=== PATIENT | male | born 1965 | race Caucasian/White ===

== ENCOUNTER 2017-08-07 01:53 | Emergency (ER) | payer MEDICAID, SELFPAY ==
[~2017-08-07] VITALS: Ht 170.2 cm; Wt 84.1 kg
[2017-08-07 01:56] VITALS: BP 146/95
[2017-08-07] MEDS ORDERED: AMIT25TA9 PO (02:01)
[2017-08-07] MEDS ORDERED: IBUP-2071 PO (02:01)
[2017-08-07] MEDS ORDERED: LISI-661 PO (02:01)
[2017-08-07 02:29] LABS: BASOPHILS # (AUTO) 0.09 K/uL (0.00-0.20); BASOPHILS % (AUTO) 1.1 % (0.0-2.0); EOSINOPHILS # (AUTO) 0.05 K/uL (0.00-0.70); EOSINOPHILS % (AUTO) 0.57 % (1.0-6.0); HEMATOCRIT 42.3 % (41-53); HEMOGLOBIN 14.3 g/dL (13.5-17.5); LYMPHOCYTES # (AUTO) 2.4 K/uL (1.0-4.8); LYMPHOCYTES % (AUTO) 28.1 % (22.0-44.0); MEAN CORPUSCULAR HEMOGLOBIN 30.6 pg (26.0-34.0); MEAN CORPUSCULAR HGB CONC 33.7 G/dL (31.0-37.0); MEAN CORPUSCULAR VOLUME 91 fL (80-100); MONOCYTES # (AUTO) 0.6 K/uL (0.1-1.0); MONOCYTES % (AUTO) 7.1 % (2.0-9.0); NEUTROPHILS # (AUTO) 5.4 K/uL (1.8-7.7); NEUTROPHILS % (AUTO) 63.2 % (40.0-70.0); PLATELET COUNT (AUTO) 258 K/uL (150-450); RED BLOOD CELL COUNT(AUTO) 4.66 MIL/uL (4.50-5.90); RED CELL DISTRIBUTION WIDTH 14.2 % (11.5-14.5)
[2017-08-07 02:40] LABS: ANION GAP 4 mmol/L (8-16); CARBON DIOXIDE 31 mmol/L (22-29); CHLORIDE 99 mmol/L (98-107); CREATININE 1.42 mg/dL (0.60-1.30); GLOMERULAR FILTR. RATE CALC 53 mL/min (>60); GLUCOSE,RANDOM 94 mg/dL (70-110); POTASSIUM 4.2 mmol/L (3.5-5.1); SODIUM SERUM 134 mmol/L (136-145); UREA NITROGEN, BLOOD 18 mg/dL (7-18)
[2017-08-07 02:46] LABS: ALANINE AMINOTRANSFERASE 26 U/L (12-78); ALBUMIN 3.8 g/dL (3.4-5.0); ALKALINE PHOSPHATASE 105 U/L (46-116); ASPARTATE AMINOTRANSFERASE 23 U/L (15-37); BILIRUBIN,TOTAL 0.6 mg/dL (0.1-1.0); TOTAL PROTEIN, SERUM 7.7 g/dL (6.4-8.2)
[2017-08-07] MEDS ORDERED: HALOPERIDOL 5 MG TABLET PO ONE (03:45)
== END 2017-08-07 05:06 | disposition home or self-care (01) ==
LOC: EMS 01:54
DX: R44.0 Auditory hallucinations (principal); R44.1 Visual hallucinations; R79.89 Other specified abnormal findings of blood chemistry; F41.9 Anxiety disorder, unspecified; F32.9 Major depressive disorder, single episode, unspecified; F20.9 Schizophrenia, unspecified; I10 Essential (primary) hypertension; F17.210 Nicotine dependence, cigarettes, uncomplicated; F11.90 Opioid use, unspecified, uncomplicated; F12.90 Cannabis use, unspecified, uncomplicated; F19.90 Other psychoactive substance use, unspecified, uncomplicated; F15.90 Other stimulant use, unspecified, uncomplicated; Z76.0 Encounter for issue of repeat prescription
CPT/HCPCS: 36415; 80053; 85025; 99284; G0480

== ENCOUNTER 2017-11-06 23:51 | Emergency (ER) | payer MEDICAID ==
[~2017-11-06] VITALS: Ht 172.7 cm; Wt 88.2 kg
[~2017-11-06 23:51] MED LIST: AMIT25TA9 PO; IBUP-2071 PO; LISI-661 PO
[2017-11-06 23:58] VITALS: BP 106/73
[2017-11-07] MEDS ORDERED: NAPR250T4 PO (00:03)
== END 2017-11-07 00:56 | disposition left against medical advice (07) ==
LOC: EMS 23:51
DX: R42 Dizziness and giddiness (principal); R51 Headache; R11.10 Vomiting, unspecified; I10 Essential (primary) hypertension; F17.210 Nicotine dependence, cigarettes, uncomplicated; F12.90 Cannabis use, unspecified, uncomplicated; F19.90 Other psychoactive substance use, unspecified, uncomplicated; F11.90 Opioid use, unspecified, uncomplicated; Z53.21 Procedure and treatment not carried out due to patient leaving prior to being seen by health care provider

== ENCOUNTER 2017-11-07 04:17 | Emergency (ER) | payer MEDICAID ==
[~2017-11-07] VITALS: Ht 172.7 cm; Wt 88.2 kg
[~2017-11-07 04:17] MED LIST changes: +NAPR250T4 PO
[2017-11-07 04:58] LABS: BASOPHILS % (AUTO) 0.3 % (0.0-2.0); EOSINOPHILS % (AUTO) 0.4 % (1.0-6.0); HEMATOCRIT 48.1 % (41-53); HEMOGLOBIN 16.4 g/dL (13.5-17.5); LYMPHOCYTES # (AUTO) 3.5 K/uL (1.0-4.8); LYMPHOCYTES % (AUTO) 38.4 % (22.0-44.0); MEAN CORPUSCULAR HEMOGLOBIN 30.8 pg (26.0-34.0); MEAN CORPUSCULAR HGB CONC 34.1 G/dL (31.0-37.0); MEAN CORPUSCULAR VOLUME 90 fL (80-100); MONOCYTES # (AUTO) 1.2 K/uL (0.1-1.0); NEUTROPHILS # (AUTO) 4.4 K/uL (1.8-7.7); NEUTROPHILS % (AUTO) 47.9 % (40.0-70.0); PLATELET COUNT (AUTO) 271 K/uL (150-450); RED BLOOD CELL COUNT(AUTO) 5.32 MIL/uL (4.50-5.90); RED CELL DISTRIBUTION WIDTH 14.1 % (11.5-14.5)
[2017-11-07 05:10] VITALS: BP 102/68
[2017-11-07 05:14] LABS: CALCIUM, TOTAL 9.6 mg/dL (8.8-10.5); CREATININE 3.04 mg/dL (0.60-1.30); POTASSIUM 4.9 mmol/L (3.5-5.1)
[2017-11-07 05:20] LABS: ALBUMIN 4.4 g/dL (3.4-5.0); BILIRUBIN,TOTAL 0.7 mg/dL (0.1-1.0); TOTAL PROTEIN, SERUM 8.3 g/dL (6.4-8.2)
== END 2017-11-07 05:42 | disposition left against medical advice (07) ==
LOC: EMS 04:17
DX: R42 Dizziness and giddiness (principal); N28.9 Disorder of kidney and ureter, unspecified; I10 Essential (primary) hypertension; F17.210 Nicotine dependence, cigarettes, uncomplicated; F11.90 Opioid use, unspecified, uncomplicated; F12.90 Cannabis use, unspecified, uncomplicated; F15.90 Other stimulant use, unspecified, uncomplicated
CPT/HCPCS: 99284

== ENCOUNTER 2018-04-16 15:54 | Emergency (ER) | payer MEDICAID ==
[~2018-04-16] VITALS: Ht 172.7 cm; Wt 86.0 kg
[2018-04-16 17:48] VITALS: BP 128/87
== END 2018-04-16 17:50 | disposition home or self-care (01) ==
LOC: EMS 15:55
DX: S00.83XA Contusion of other part of head, initial encounter (principal); M79.89 Other specified soft tissue disorders; F41.9 Anxiety disorder, unspecified; F32.9 Major depressive disorder, single episode, unspecified; I10 Essential (primary) hypertension; F20.9 Schizophrenia, unspecified; F17.210 Nicotine dependence, cigarettes, uncomplicated; F11.10 Opioid abuse, uncomplicated; F12.10 Cannabis abuse, uncomplicated; F14.90 Cocaine use, unspecified, uncomplicated; Z79.899 Other long term (current) drug therapy; Y04.0XXA Assault by unarmed brawl or fight, initial encounter; Y93.89 Activity, other specified; Y92.89 Other specified places as the place of occurrence of the external cause; Y99.8 Other external cause status
CPT/HCPCS: 99284

== ENCOUNTER 2019-04-15 12:26 | Emergency (ER) | payer MEDICAID, OTHER ==
[~2019-04-15] VITALS: Ht 175.3 cm; Wt 90.9 kg
[2019-04-15] MEDS ORDERED: HYDR25TA PO (12:34)
[2019-04-15] MEDS ORDERED: ACET-66 PO (12:34)
[2019-04-15] MEDS ORDERED: AMIT50TA3 PO (13:24)
[2019-04-15] MEDS ORDERED: LISI-662 PO (13:24)
[2019-04-15] MEDS ORDERED: AMOX TR/POT CLAV 875 MG/125 MG TABLET PO ONE (13:30)
[2019-04-15] MEDS ORDERED: ACETAMINOPHEN 500 MG TABLET PO ONE (13:45)
[2019-04-15 14:09] VITALS: BP 140/80
== END 2019-04-15 14:10 | disposition home or self-care (01) ==
LOC: EMS 12:29
DX: H66.92 Otitis media, unspecified, left ear (principal); I10 Essential (primary) hypertension; F32.9 Major depressive disorder, single episode, unspecified; F41.9 Anxiety disorder, unspecified; F17.210 Nicotine dependence, cigarettes, uncomplicated; Z79.899 Other long term (current) drug therapy

== ENCOUNTER 2019-06-09 16:07 | Emergency (ER) | payer OTHER ==
[~2019-06-09] VITALS: Ht 175.3 cm; Wt 87.3 kg
[~2019-06-09 16:07] MED LIST changes: +ACET-66 PO; -AMIT25TA9 PO; +AMIT50TA3 PO; +HYDR25TA PO; -IBUP-2071 PO; -LISI-661 PO; +LISI-662 PO; -NAPR250T4 PO
[2019-06-09] MEDS ORDERED: LIDOCAINE/PF 1% 5 ML VIAL INJ ONE (17:00)
[2019-06-09] MEDS ORDERED: BACITRACIN 0.9 GM PACKET OINTMENT TP ONE (17:00)
[2019-06-09 17:40] VITALS: BP 124/81
== END 2019-06-09 17:47 | disposition home or self-care (01) ==
LOC: EMS 16:07
DX: S61.411A Laceration without foreign body of right hand, initial encounter (principal); F17.210 Nicotine dependence, cigarettes, uncomplicated; F41.9 Anxiety disorder, unspecified; F32.9 Major depressive disorder, single episode, unspecified; F20.9 Schizophrenia, unspecified; I10 Essential (primary) hypertension; Z79.899 Other long term (current) drug therapy; W26.0XXA Contact with knife, initial encounter; Y93.89 Activity, other specified; Y92.89 Other specified places as the place of occurrence of the external cause; Y99.8 Other external cause status
CPT/HCPCS: 12002; 99283; 99406; J2001

== ENCOUNTER 2020-03-24 17:28 | Emergency (ER) | payer MEDICAID, OTHER ==
[~2020-03-24] VITALS: Ht 175.3 cm; Wt 100.0 kg
[~2020-03-24 17:28] MED LIST changes: +HYDR-1475 PO; -HYDR25TA PO
[2020-03-24] MEDS ORDERED: IBUPROFEN 800 MG TABLET PO ONE (18:00)
[2020-03-24 19:32] LABS: BASOPHILS % (AUTO) 0.6 % (0.0-2.0); EOSINOPHILS % (AUTO) 0.7 % (1.0-6.0); HEMATOCRIT 45.8 % (41-53); HEMOGLOBIN 15.2 g/dL (13.5-17.5); LYMPHOCYTES # (AUTO) 3.1 K/uL (1.0-4.8); LYMPHOCYTES % (AUTO) 31.5 % (22.0-44.0); MEAN CORPUSCULAR HEMOGLOBIN 30.3 pg (26.0-34.0); MEAN CORPUSCULAR HGB CONC 33.3 G/dL (31.0-37.0); MEAN CORPUSCULAR VOLUME 91 fL (80-100); MONOCYTES # (AUTO) 1.1 K/uL (0.1-1.0); MONOCYTES % (AUTO) 10.9 % (2.0-9.0); NEUTROPHILS # (AUTO) 5.6 K/uL (1.8-7.7); NEUTROPHILS % (AUTO) 56.3 % (40.0-70.0); PLATELET COUNT (AUTO) 270 K/uL (150-450); RED BLOOD CELL COUNT(AUTO) 5.02 MIL/uL (4.50-5.90); RED CELL DISTRIBUTION WIDTH 13.9 % (11.5-14.5)
[2020-03-24] MEDS ORDERED: KETOROLAC TROMETHAMINE 30 MG/ML VIAL IVP ONE (19:45)
[2020-03-24 20:00] LABS: CALCIUM, TOTAL 9.5 mg/dL (8.8-10.5); CREATININE 1.43 mg/dL (0.60-1.30); POTASSIUM 3.6 mmol/L (3.5-5.1)
[2020-03-24 20:25] LABS: ALBUMIN 4.2 g/dL (3.4-5.0); BILIRUBIN,TOTAL 1.1 mg/dL (0.1-1.0); TOTAL PROTEIN, SERUM 8.3 g/dL (6.4-8.2)
[2020-03-24 20:30] VITALS: BP 123/84
[2020-03-24 20:46] LABS: PROTHROMBIN TIME 10.5 SEC (9.4-11.6)
== END 2020-03-24 21:14 | disposition home or self-care (01) ==
LOC: EMS 17:28
DX: S22.20XA Unspecified fracture of sternum, initial encounter for closed fracture (principal); J20.9 Acute bronchitis, unspecified; I10 Essential (primary) hypertension; F32.9 Major depressive disorder, single episode, unspecified; F41.9 Anxiety disorder, unspecified; F12.90 Cannabis use, unspecified, uncomplicated; F17.210 Nicotine dependence, cigarettes, uncomplicated; Z79.899 Other long term (current) drug therapy; V49.40XA Driver injured in collision with unspecified motor vehicles in traffic accident, initial encounter; Y93.89 Activity, other specified; Y92.89 Other specified places as the place of occurrence of the external cause; Y99.8 Other external cause status
CPT/HCPCS: 36415; 71045; 71250; 80053; 82550; 83880; 84484; 85025; 85610; 85730; 93005; 96374; 99285; 99406; J1885

== ENCOUNTER 2020-04-16 22:26 | Emergency (ER) | payer MEDICAID ==
[~2020-04-16] VITALS: Ht 172.7 cm; Wt 90.9 kg
[2020-04-17] MEDS ORDERED: CLINDAMYCIN HCL 150 MG CAPSULE PO ONE
[2020-04-17 00:25] VITALS: BP 135/88
== END 2020-04-17 00:45 | disposition home or self-care (01) ==
LOC: EMS 22:26
DX: L03.011 Cellulitis of right finger (principal); F32.9 Major depressive disorder, single episode, unspecified; I10 Essential (primary) hypertension; F20.9 Schizophrenia, unspecified; F17.210 Nicotine dependence, cigarettes, uncomplicated
CPT/HCPCS: 71045-TC

== ENCOUNTER 2020-04-29 13:01 | Emergency (ER) | payer MEDICAID ==
[~2020-04-29] VITALS: Ht 167.6 cm; Wt 77.3 kg
[2020-04-29] MEDS ORDERED: OLAN5TAB2 PO (13:06)
[2020-04-29 14:15] VITALS: BP 114/65
== END 2020-04-29 14:22 | disposition home or self-care (01) ==
LOC: EMS 13:03
DX: R42 Dizziness and giddiness (principal); F20.9 Schizophrenia, unspecified; F41.9 Anxiety disorder, unspecified; F32.9 Major depressive disorder, single episode, unspecified; I10 Essential (primary) hypertension; F17.210 Nicotine dependence, cigarettes, uncomplicated; F12.90 Cannabis use, unspecified, uncomplicated; Z79.899 Other long term (current) drug therapy
CPT/HCPCS: 93005

== ENCOUNTER 2020-07-24 23:32 | Emergency (ER) | payer MEDICAID ==
[~2020-07-24] VITALS: Ht 172.7 cm; Wt 81.8 kg
[~2020-07-24 23:32] MED LIST changes: +ACET-3385 PO; -ACET-66 PO; +OLAN5TAB2 PO
[2020-07-24 23:36] VITALS: BP 158/100
== END 2020-07-25 02:13 | disposition left against medical advice (07) ==
LOC: EMS 23:35
DX: Z04.1 Encounter for examination and observation following transport accident (principal); Z53.21 Procedure and treatment not carried out due to patient leaving prior to being seen by health care provider

== ENCOUNTER 2020-08-11 03:19 | Emergency (ER) | payer MEDICAID ==
[~2020-08-11 03:19] MED LIST changes: -LISI-662 PO; +LISI-894 PO
== END 2020-08-11 03:50 | disposition left against medical advice (07) ==
LOC: EMS 03:19
DX: R44.0 Auditory hallucinations (principal); Z53.21 Procedure and treatment not carried out due to patient leaving prior to being seen by health care provider

== ENCOUNTER 2021-09-19 09:03 | Emergency (ER) | payer MEDICAID ==
[~2021-09-19] VITALS: Ht 172.7 cm; Wt 87.7 kg
[~2021-09-19 09:03] MED LIST changes: +AMIT-92 PO; -AMIT50TA3 PO; -HYDR-1475 PO; +HYDR25TA2 PO; -OLAN5TAB2 PO; +OLAN5TAB52 PO
[2021-09-19 09:27] VITALS: BP 125/83
[2021-09-19] MEDS ORDERED: IBUP-2070 PO ×2 (10:11→10:46)
[2021-09-19] MEDS ORDERED: DOXY-354 PO ×2 (10:11→10:46)
== END 2021-09-19 10:50 | disposition home or self-care (01) ==
LOC: EMS 09:03
DX: L02.413 Cutaneous abscess of right upper limb (principal); I10 Essential (primary) hypertension; F41.9 Anxiety disorder, unspecified; F32.9 Major depressive disorder, single episode, unspecified; F20.9 Schizophrenia, unspecified; F12.90 Cannabis use, unspecified, uncomplicated; F17.210 Nicotine dependence, cigarettes, uncomplicated; Z79.899 Other long term (current) drug therapy
CPT/HCPCS: 99283; Z7502

== ENCOUNTER 2021-11-27 23:42 | Emergency (ER) | payer MEDICAID ==
[~2021-11-27] VITALS: Ht 172.7 cm; Wt 86.4 kg
[~2021-11-27 23:42] MED LIST changes: +DOXY-354 PO; +IBUP-2070 PO
[2021-11-27 23:46] VITALS: BP 165/99
[2021-11-27] MEDS ORDERED: HYDR25TA2 PO (23:58)
== END 2021-11-27 23:55 | disposition left against medical advice (07) ==
LOC: EMS 23:46
DX: F32.9 Major depressive disorder, single episode, unspecified (principal); Z53.21 Procedure and treatment not carried out due to patient leaving prior to being seen by health care provider

== ENCOUNTER 2021-11-29 20:44 | Emergency (ER) | payer MEDICAID ==
[~2021-11-29] VITALS: Ht 172.7 cm; Wt 82.7 kg
[~2021-11-29 20:44] MED LIST changes: -ACET-3385 PO; -DOXY-354 PO; -OLAN5TAB52 PO
[2021-11-29 21:11] VITALS: BP 154/86
[2021-11-30] MEDS ORDERED: LORazepam 2 MG TABLET PO ONE
[2021-11-30] MEDS ORDERED: OLANZapine 5 MG TABLET PO ONE
== END 2021-11-30 03:00 | disposition home or self-care (01) ==
LOC: EMS 20:54
DX: F20.9 Schizophrenia, unspecified (principal); F32.A Depression, unspecified; F41.9 Anxiety disorder, unspecified; I10 Essential (primary) hypertension; F17.210 Nicotine dependence, cigarettes, uncomplicated; F12.90 Cannabis use, unspecified, uncomplicated; Z87.898 Personal history of other specified conditions; Z98.890 Other specified postprocedural states
CPT/HCPCS: 99284; Z7502; Z7610

== ENCOUNTER 2022-02-11 10:11 | Emergency (ER) | payer MEDICAID ==
[~2022-02-11] VITALS: Ht 170.2 cm; Wt 90.9 kg
[2022-02-11] MEDS ORDERED: QUET50TA PO (10:24)
[2022-02-11 10:44] VITALS: BP 132/88
[2022-02-11] MEDS ORDERED: CEPH-558 PO (11:12)
== END 2022-02-11 11:33 | disposition home or self-care (01) ==
LOC: EMS 10:13
DX: S69.91XA Unspecified injury of right wrist, hand and finger(s), initial encounter (principal); F20.9 Schizophrenia, unspecified; F31.9 Bipolar disorder, unspecified; F41.9 Anxiety disorder, unspecified; F10.20 Alcohol dependence, uncomplicated; F17.210 Nicotine dependence, cigarettes, uncomplicated; F12.90 Cannabis use, unspecified, uncomplicated; I10 Essential (primary) hypertension; W26.9XXA Contact with unspecified sharp object(s), initial encounter; Y93.89 Activity, other specified; Y92.89 Other specified places as the place of occurrence of the external cause; Y99.8 Other external cause status
CPT/HCPCS: 99283

== ENCOUNTER 2022-03-02 10:11 | Emergency (ER) | payer MEDICAID ==
[~2022-03-02] VITALS: Ht 172.7 cm; Wt 85.0 kg
[~2022-03-02 10:11] MED LIST changes: +CEPH-558 PO; -HYDR25TA2 PO; +QUET50TA PO
[2022-03-02] MEDS ORDERED: IBUPROFEN 600 MG TABLET PO ONE (11:45)
[2022-03-02 11:57] LABS: BASOPHILS % (AUTO) 0.6 % (0.0-2.0); EOSINOPHILS % (AUTO) 1.6 % (1.0-6.0); HEMATOCRIT 42.9 % (41-53); HEMOGLOBIN 14.6 g/dL (13.5-17.5); LYMPHOCYTES # (AUTO) 2.3 K/uL (1.0-4.8); LYMPHOCYTES % (AUTO) 30.3 % (22.0-44.0); MEAN CORPUSCULAR HEMOGLOBIN 30.9 pg (26.0-34.0); MEAN CORPUSCULAR HGB CONC 33.9 G/dL (31.0-37.0); MEAN CORPUSCULAR VOLUME 91 fL (80-100); MONOCYTES # (AUTO) 0.7 K/uL (0.1-1.0); NEUTROPHILS # (AUTO) 4.4 K/uL (1.8-7.7); NEUTROPHILS % (AUTO) 58.5 % (40.0-70.0); PLATELET COUNT (AUTO) 225 K/uL (150-450); RED BLOOD CELL COUNT(AUTO) 4.72 MIL/uL (4.50-5.90); RED CELL DISTRIBUTION WIDTH 13.3 % (11.5-14.5)
[2022-03-02 13:01] LABS: ANION GAP 8 mmol/L (8-16); CALCIUM, TOTAL 8.6 mg/dL (8.8-10.5); CARBON DIOXIDE 26 mmol/L (22-29); CHLORIDE 105 mmol/L (98-107); CREATININE 1.18 mg/dL (0.60-1.30); GLOMERULAR FILTR. RATE CALC > 60 mL/min (>60); GLUCOSE,RANDOM 91 mg/dL (70-110); SODIUM SERUM 139 mmol/L (136-145); UREA NITROGEN, BLOOD 24 mg/dL (7-18)
[2022-03-02] MEDS ORDERED: IBUP-2070 PO (13:28)
[2022-03-02 14:23] VITALS: BP 113/72
== END 2022-03-02 14:57 | disposition home or self-care (01) ==
LOC: EMS 10:11
DX: S62.636A Displaced fracture of distal phalanx of right little finger, initial encounter for closed fracture (principal); R55 Syncope and collapse; S09.90XA Unspecified injury of head, initial encounter; S16.1XXA Strain of muscle, fascia and tendon at neck level, initial encounter; F41.9 Anxiety disorder, unspecified; F32.A Depression, unspecified; I10 Essential (primary) hypertension; F20.9 Schizophrenia, unspecified; G47.00 Insomnia, unspecified; F17.210 Nicotine dependence, cigarettes, uncomplicated; F12.90 Cannabis use, unspecified, uncomplicated; Z98.890 Other specified postprocedural states; X58.XXXA Exposure to other specified factors, initial encounter; Y93.89 Activity, other specified; Y92.098 Other place in other non-institutional residence as the place of occurrence of the external cause; Y99.8 Other external cause status
CPT/HCPCS: 70450; 72125; 80048; 85025; 93005; 99285

== ENCOUNTER 2022-03-14 18:21 | Emergency (ER) | payer MEDICAID ==
[~2022-03-14] VITALS: Ht 172.7 cm; Wt 81.8 kg
[~2022-03-14 18:21] MED LIST changes: -CEPH-558 PO
[2022-03-14 20:02] LABS: BASOPHILS % (AUTO) 0.4 % (0.0-2.0); EOSINOPHILS % (AUTO) 0.1 % (1.0-6.0); HEMATOCRIT 43.4 % (41-53); HEMOGLOBIN 14.6 g/dL (13.5-17.5); LYMPHOCYTES # (AUTO) 1.5 K/uL (1.0-4.8); LYMPHOCYTES % (AUTO) 17.9 % (22.0-44.0); MEAN CORPUSCULAR HEMOGLOBIN 30.8 pg (26.0-34.0); MEAN CORPUSCULAR HGB CONC 33.6 G/dL (31.0-37.0); MEAN CORPUSCULAR VOLUME 92 fL (80-100); MONOCYTES # (AUTO) 0.6 K/uL (0.1-1.0); MONOCYTES % (AUTO) 6.7 % (2.0-9.0); NEUTROPHILS # (AUTO) 6.2 K/uL (1.8-7.7); NEUTROPHILS % (AUTO) 74.9 % (40.0-70.0); PLATELET COUNT (AUTO) 200 K/uL (150-450); RED BLOOD CELL COUNT(AUTO) 4.74 MIL/uL (4.50-5.90); RED CELL DISTRIBUTION WIDTH 13.7 % (11.5-14.5)
[2022-03-14 20:11] LABS: ANION GAP 15 mmol/L (8-16); CALCIUM, TOTAL 9.5 mg/dL (8.8-10.5); CARBON DIOXIDE 28 mmol/L (22-29); CHLORIDE 100 mmol/L (98-107); CREATININE 1.14 mg/dL (0.60-1.30); GLOMERULAR FILTR. RATE CALC > 60 mL/min (>60); GLUCOSE,RANDOM 102 mg/dL (70-110); SODIUM SERUM 143 mmol/L (136-145); UREA NITROGEN, BLOOD 21 mg/dL (7-18)
[2022-03-14 20:18] LABS: ALANINE AMINOTRANSFERASE 27 U/L (12-78); ALBUMIN 3.8 g/dL (3.4-5.0); ALKALINE PHOSPHATASE 88 U/L (46-116); ASPARTATE AMINOTRANSFERASE 23 U/L (15-37); BILIRUBIN,TOTAL 0.8 mg/dL (0.1-1.0); TOTAL PROTEIN, SERUM 7.1 g/dL (6.4-8.2)
[2022-03-14 20:43] LABS: APPEARANCE,URINE CLEAR (CLEAR); BILIRUBIN,URINE NEGATIVE (NEGATIVE); GLUCOSE, URINE (UA) NEGATIVE (NEGATIVE); LEUKOCYTE ESTERASE ,URINE NEGATIVE (NEGATIVE); NITRATE,URINE NEGATIVE (NEGATIVE); OCCULT BLOOD,URINE NEGATIVE (NEGATIVE); PH,URINE 6.5 (5.0-8.0); PROTEIN,URINE 30-70 mg/dL (NEGATIVE); SPECIFIC GRAVITIY, URINE 1.034 (1.003-1.030); UROBILINOGEN,URINE <=1.0 mg/dL (<=1.0)
[2022-03-14 20:49] LABS: AMPHET/METH SCREEN,URINE POSITIVE (NEGATIVE); BARBITURATE SCREEN, URINE NEGATIVE (NEGATIVE); BENZODIAZEPINES SCREEN,URINE NEGATIVE (NEGATIVE); CANNABINOID SCREEN,URINE POSITIVE (NEGATIVE); COCAINE SCREEN,URINE NEGATIVE (NEGATIVE); METHADONE SCREEN, URINE NEGATIVE (NEGATIVE); OPIATE SCREEN,URINE NEGATIVE (NEGATIVE)
[2022-03-14 20:50] LABS: PHENCYCLIDINE SCREEN,URINE NEGATIVE (NEGATIVE)
[2022-03-14 22:30] VITALS: BP 128/66
== END 2022-03-14 23:19 | disposition home or self-care (01) ==
LOC: EMS 18:22
DX: R41.82 Altered mental status, unspecified (principal); F15.10 Other stimulant abuse, uncomplicated; I10 Essential (primary) hypertension; E11.9 Type 2 diabetes mellitus without complications; F41.9 Anxiety disorder, unspecified; F12.90 Cannabis use, unspecified, uncomplicated; F17.210 Nicotine dependence, cigarettes, uncomplicated; Z79.899 Other long term (current) drug therapy
CPT/HCPCS: 99283; 80053; 82962; 85025; 36415; 80307; 81003; G0480

== ENCOUNTER 2022-03-27 09:50 | Emergency (ER) | payer MEDICAID ==
[~2022-03-27] VITALS: Ht 172.7 cm; Wt 89.5 kg
[2022-03-27] MEDS ORDERED: HYDR25TA2 PO (09:53)
[2022-03-27 09:54] VITALS: BP 141/102
[2022-03-27] MEDS ORDERED: NEOMYCIN/POLYMYXIN B/HYDROCORT 10 ML OTIC SOLUTION AU ONE (11:15)
[2022-03-27] MEDS ORDERED: ACETAMINOPHEN 500 MG TABLET PO ONE (11:15)
[2022-03-27] MEDS ORDERED: CEPH-558 PO (11:25)
[2022-03-27] MEDS ORDERED: ACET-66 PO (11:25)
== END 2022-03-27 11:38 | disposition home or self-care (01) ==
LOC: EMS 09:51
DX: H60.93 Unspecified otitis externa, bilateral (principal); F20.9 Schizophrenia, unspecified; F32.9 Major depressive disorder, single episode, unspecified; F41.9 Anxiety disorder, unspecified; F10.20 Alcohol dependence, uncomplicated; F12.90 Cannabis use, unspecified, uncomplicated; F17.210 Nicotine dependence, cigarettes, uncomplicated; I10 Essential (primary) hypertension
CPT/HCPCS: 99283

== ENCOUNTER 2022-05-02 21:15 | Emergency (ER) | payer MEDICAID ==
[~2022-05-02] VITALS: Ht 177.8 cm; Wt 90.9 kg
[~2022-05-02 21:15] MED LIST changes: +ACET-66 PO; +CEPH-558 PO; +HYDR25TA2 PO
[2022-05-02 21:55] LABS: BASOPHILS % (AUTO) 0.7 % (0.0-2.0); EOSINOPHILS % (AUTO) 0.5 % (1.0-6.0); HEMATOCRIT 49.4 % (41-53); HEMOGLOBIN 16.2 g/dL (13.5-17.5); LYMPHOCYTES # (AUTO) 2.9 K/uL (1.0-4.8); LYMPHOCYTES % (AUTO) 22.8 % (22.0-44.0); MEAN CORPUSCULAR HEMOGLOBIN 31.2 pg (26.0-34.0); MEAN CORPUSCULAR HGB CONC 32.8 G/dL (31.0-37.0); MEAN CORPUSCULAR VOLUME 95 fL (80-100); NEUTROPHILS # (AUTO) 8.6 K/uL (1.8-7.7); PLATELET COUNT (AUTO) 289 K/uL (150-450); RED BLOOD CELL COUNT(AUTO) 5.21 MIL/uL (4.50-5.90); RED CELL DISTRIBUTION WIDTH 14.5 % (11.5-14.5)
[2022-05-02 22:05] LABS: ANION GAP 11 mmol/L (8-16); CALCIUM, TOTAL 9.8 mg/dL (8.8-10.5); CARBON DIOXIDE 25 mmol/L (22-29); CHLORIDE 99 mmol/L (98-107); GLUCOSE,RANDOM 96 mg/dL (70-110); POTASSIUM 4.4 mmol/L (3.5-5.1); SODIUM SERUM 135 mmol/L (136-145); UREA NITROGEN, BLOOD 25 mg/dL (7-18)
[2022-05-02 22:07] LABS: GLOMERULAR FILTR. RATE CALC 45 mL/min (>60)
[2022-05-02 22:18] LABS: ALANINE AMINOTRANSFERASE 38 U/L (12-78); ALBUMIN 4.3 g/dL (3.4-5.0); ALKALINE PHOSPHATASE 113 U/L (46-116); ASPARTATE AMINOTRANSFERASE 26 U/L (15-37); CREATINE KINASE, TOTAL ONLY 288 U/L (39-308); TOTAL PROTEIN, SERUM 8.1 g/dL (6.4-8.2)
[2022-05-03 02:17] VITALS: BP 133/83
== END 2022-05-03 03:27 | disposition home or self-care (01) ==
LOC: EMS 21:15
DX: F15.10 Other stimulant abuse, uncomplicated (principal); E86.0 Dehydration; I10 Essential (primary) hypertension; F17.210 Nicotine dependence, cigarettes, uncomplicated; F32.A Depression, unspecified; F20.9 Schizophrenia, unspecified; F12.90 Cannabis use, unspecified, uncomplicated; F41.9 Anxiety disorder, unspecified; G47.00 Insomnia, unspecified; R45.851 Suicidal ideations; R07.89 Other chest pain
CPT/HCPCS: 99285; 71045; 80053; 82550; 84484; 85025; 36415; 93005; G0480; 99283

== ENCOUNTER 2022-09-20 07:38 | Emergency (ER) | payer MEDICAID, OTHER ==
[~2022-09-20] VITALS: Ht 172.7 cm; Wt 79.5 kg
[~2022-09-20 07:38] MED LIST changes: -AMIT-92 PO; +AMIT50TA4 PO; +IBUP-1492 PO; -IBUP-2070 PO
[2022-09-20] MEDS ORDERED: ONDANSETRON HCL 4 MG/2 ML VIAL IVP ONE (09:00)
[2022-09-20] MEDS ORDERED: SODIUM CHLORIDE 0.9% 2,000 ML IV ONE (09:00)
[2022-09-20] MEDS ORDERED: MORPHINE SULFATE 4 MG/ML SYRINGE IVP ONE (09:00)
[2022-09-20 09:10] LABS: BASOPHILS % (AUTO) 0.6 % (0.0-2.0); EOSINOPHILS % (AUTO) 0.6 % (1.0-6.0); HEMATOCRIT 44.4 % (41-53); HEMOGLOBIN 14.9 g/dL (13.5-17.5); LYMPHOCYTES # (AUTO) 1.9 K/uL (1.0-4.8); LYMPHOCYTES % (AUTO) 24.7 % (22.0-44.0); MEAN CORPUSCULAR HEMOGLOBIN 31.1 pg (26.0-34.0); MEAN CORPUSCULAR HGB CONC 33.4 G/dL (31.0-37.0); MEAN CORPUSCULAR VOLUME 93 fL (80-100); MONOCYTES # (AUTO) 0.7 K/uL (0.1-1.0); MONOCYTES % (AUTO) 8.7 % (2.0-9.0); NEUTROPHILS % (AUTO) 65.4 % (40.0-70.0); PLATELET COUNT (AUTO) 236 K/uL (150-450); RED BLOOD CELL COUNT(AUTO) 4.77 MIL/uL (4.50-5.90)
[2022-09-20 09:23] LABS: ANION GAP 4 mmol/L (8-16); CALCIUM, TOTAL 9.2 mg/dL (8.8-10.5); CARBON DIOXIDE 30 mmol/L (22-29); CHLORIDE 102 mmol/L (98-107); CREATININE 0.95 mg/dL (0.60-1.30); GLOMERULAR FILTR. RATE CALC > 60 mL/min (>60); GLUCOSE,RANDOM 103 mg/dL (70-110); POTASSIUM 4.4 mmol/L (3.5-5.1); SODIUM SERUM 136 mmol/L (136-145); UREA NITROGEN, BLOOD 14 mg/dL (7-18)
[2022-09-20 09:27] LABS: LACTIC ACID 0.6 mmol/L (0.4-2.0)
[2022-09-20 09:34] LABS: ALANINE AMINOTRANSFERASE 28 U/L (12-78); ALBUMIN 3.3 g/dL (3.4-5.0); ALKALINE PHOSPHATASE 83 U/L (46-116); ASPARTATE AMINOTRANSFERASE 21 U/L (15-37); BILIRUBIN,TOTAL 0.6 mg/dL (0.1-1.0); LIPASE 113 U/L (73-393); TOTAL PROTEIN, SERUM 6.6 g/dL (6.4-8.2)
[2022-09-20 11:20] LABS: APPEARANCE,URINE CLEAR (CLEAR); BILIRUBIN,URINE NEGATIVE (NEGATIVE); GLUCOSE, URINE (UA) NEGATIVE (NEGATIVE); KETONES,URINE NEGATIVE (NEGATIVE); LEUKOCYTE ESTERASE ,URINE NEGATIVE (NEGATIVE); NITRATE,URINE NEGATIVE (NEGATIVE); OCCULT BLOOD,URINE NEGATIVE (NEGATIVE); PH,URINE 6.5 (5.0-8.0); PROTEIN,URINE NEGATIVE (NEGATIVE); UROBILINOGEN,URINE <=1.0 mg/dL (<=1.0)
[2022-09-20 11:28] LABS: AMPHET/METH SCREEN,URINE NEGATIVE (NEGATIVE); BARBITURATE SCREEN, URINE NEGATIVE (NEGATIVE); BENZODIAZEPINES SCREEN,URINE NEGATIVE (NEGATIVE); CANNABINOID SCREEN,URINE POSITIVE (NEGATIVE); COCAINE SCREEN,URINE NEGATIVE (NEGATIVE); METHADONE SCREEN, URINE NEGATIVE (NEGATIVE); OPIATE SCREEN,URINE POSITIVE (NEGATIVE); PHENCYCLIDINE SCREEN,URINE NEGATIVE (NEGATIVE)
[2022-09-20 11:47] LABS: BACTERIA,URINE None Seen /HPF (None Seen); RBC,URINE None Seen /HPF (0-2); SQUAMOUS EPITHELIAL CELL,UR None Seen /LPF (None Seen); WBC,URINE None Seen /HPF (0-5)
[2022-09-20 12:00] VITALS: BP 110/80
[2022-09-20] MEDS ORDERED: MAG30ORA11 PO (12:01)
[2022-09-20] MEDS ORDERED: OMEP20 PO (12:01)
[2022-09-20] MEDS ORDERED: ACET-66 PO (12:01)
[2022-09-20] MEDS ORDERED: CORTSOL AU (12:03)
== END 2022-09-20 12:18 | disposition home or self-care (01) ==
LOC: EMS 07:45
DX: K29.70 Gastritis, unspecified, without bleeding (principal); H60.93 Unspecified otitis externa, bilateral; F41.9 Anxiety disorder, unspecified; F32.A Depression, unspecified; I10 Essential (primary) hypertension; F20.9 Schizophrenia, unspecified; F17.210 Nicotine dependence, cigarettes, uncomplicated; F12.90 Cannabis use, unspecified, uncomplicated; Z98.890 Other specified postprocedural states
CPT/HCPCS: 99285; 74176; 96374; 96361; 96375; 80053; 82271; 83605; 83690; 84484; 85025; 36415; 93005; 81001; 80307 ×2; J2270; J2405; J7030

== ENCOUNTER 2023-02-19 13:47 | Emergency (ER) | payer OTHER ==
[~2023-02-19] VITALS: Ht 172.7 cm; Wt 81.8 kg
[~2023-02-19 13:47] MED LIST changes: -CEPH-558 PO; +CORTSOL AU; +MAG30ORA11 PO; +OMEP20 PO; -QUET50TA PO
[2023-02-19 13:55] VITALS: TEMP 98.4
[2023-02-19] MEDS ORDERED: AMIT50TA3 PO (13:55)
[2023-02-19] MEDS ORDERED: LISI20TA24 PO (13:55)
[2023-02-19] MEDS ORDERED: IBUPROFEN 600 MG TABLET PO ONE (14:30)
[2023-02-19 15:00] VITALS: BP 110/60; PULSE 77; RESP 16
[2023-02-19] MEDS ORDERED: IBUP-1492 PO (15:20)
== END 2023-02-19 15:30 | disposition home or self-care (01) ==
LOC: EMS 13:49
DX: S50.12XA Contusion of left forearm, initial encounter (principal); F41.9 Anxiety disorder, unspecified; F32.A Depression, unspecified; I10 Essential (primary) hypertension; F20.9 Schizophrenia, unspecified; F17.210 Nicotine dependence, cigarettes, uncomplicated; F12.90 Cannabis use, unspecified, uncomplicated; Z98.890 Other specified postprocedural states; W31.89XA Contact with other specified machinery, initial encounter; Y93.89 Activity, other specified; Y92.89 Other specified places as the place of occurrence of the external cause; Y99.8 Other external cause status
CPT/HCPCS: 99283

== ENCOUNTER 2023-02-27 20:17 | Emergency (ER) | payer OTHER ==
[~2023-02-27] VITALS: Ht 172.7 cm; Wt 81.8 kg
[~2023-02-27 20:17] MED LIST changes: -ACET-66 PO; +AMIT50TA3 PO; -AMIT50TA4 PO; -CORTSOL AU; -HYDR25TA2 PO; -LISI-894 PO; +LISI20TA24 PO; -MAG30ORA11 PO; -OMEP20 PO
[2023-02-27 20:20] VITALS: BP 137/104; PULSE 110; RESP 15; TEMP 98.6
[2023-02-27] MEDS ORDERED: SULFAMETHOX/TRIMETH DS 800-160 MG/TABLET PO ONE (22:15)
[2023-02-27] MEDS ORDERED: CEPHALEXIN MONOHYDRATE 500 MG CAPSULE PO ONE (22:15)
[2023-02-27] MEDS ORDERED: SULF-261 PO (22:16)
[2023-02-27] MEDS ORDERED: CEPH-558 PO (22:16)
== END 2023-02-27 22:33 | disposition home or self-care (01) ==
LOC: EMS 20:18
DX: A49.1 Streptococcal infection, unspecified site (principal); F32.A Depression, unspecified; I10 Essential (primary) hypertension; F20.9 Schizophrenia, unspecified; F17.210 Nicotine dependence, cigarettes, uncomplicated; F12.90 Cannabis use, unspecified, uncomplicated; Z98.890 Other specified postprocedural states
CPT/HCPCS: 99283

== ENCOUNTER 2023-07-04 17:30 | Emergency (ER) | payer OTHER ==
[~2023-07-04 17:30] MED LIST changes: +CEPH-558 PO; +SULF-261 PO
== END 2023-07-04 18:54 | disposition left against medical advice (07) ==
LOC: EMS 17:37
DX: Z53.21 Procedure and treatment not carried out due to patient leaving prior to being seen by health care provider (principal)

== ENCOUNTER 2023-07-06 12:41 | Emergency (ER) | payer OTHER ==
[~2023-07-06] VITALS: Ht 172.7 cm; Wt 86.4 kg
[2023-07-06 12:45] VITALS: TEMP 97.8
[2023-07-06] MEDS ORDERED: SODIUM CHLORIDE 0.9% 1,000 ML IV ONE (14:15)
[2023-07-06 14:19] LABS: BASOPHILS % (AUTO) 0.6 % (0.0-2.0); EOSINOPHILS % (AUTO) 1.3 % (1.0-6.0); HEMATOCRIT 42.5 % (41-53); HEMOGLOBIN 14.2 g/dL (13.5-17.5); LYMPHOCYTES # (AUTO) 2.3 K/uL (1.0-4.8); LYMPHOCYTES % (AUTO) 33.8 % (22.0-44.0); MEAN CORPUSCULAR HEMOGLOBIN 30.6 pg (26.0-34.0); MEAN CORPUSCULAR HGB CONC 33.3 G/dL (31.0-37.0); MEAN CORPUSCULAR VOLUME 92 fL (80-100); MONOCYTES # (AUTO) 0.4 K/uL (0.1-1.0); MONOCYTES % (AUTO) 6.2 % (2.0-9.0); NEUTROPHILS % (AUTO) 58.1 % (40.0-70.0); PLATELET COUNT (AUTO) 214 K/uL (150-450); RED BLOOD CELL COUNT(AUTO) 4.64 MIL/uL (4.50-5.90); RED CELL DISTRIBUTION WIDTH 13.6 % (11.5-14.5); WHITE BLOOD COUNT (AUTO) 6.9 K/uL (4.5-11.0)
[2023-07-06] MEDS ORDERED: ACETAMINOPHEN 1000 MG/ISO-OSM 100 ML IV ONE (14:30)
[2023-07-06 14:31] LABS: ANION GAP 9 mmol/L (8-16); CARBON DIOXIDE 28 mmol/L (22-29); CHLORIDE 101 mmol/L (98-107); GLOMERULAR FILTR. RATE CALC > 60 mL/min (>60); GLUCOSE,RANDOM 148 mg/dL (70-110); POTASSIUM 3.9 mmol/L (3.5-5.1); SODIUM SERUM 138 mmol/L (136-145); UREA NITROGEN, BLOOD 23 mg/dL (7-18)
[2023-07-06 14:37] LABS: ALANINE AMINOTRANSFERASE 75 U/L (12-78); ALBUMIN 3.3 g/dL (3.4-5.0); ALKALINE PHOSPHATASE 92 U/L (46-116); ASPARTATE AMINOTRANSFERASE 46 U/L (15-37); BILIRUBIN,TOTAL 0.5 mg/dL (0.1-1.0)
[2023-07-06] MEDS ORDERED: IOHEXOL 350 MG/ML 100 ML VIAL ONE (15:30)
[2023-07-06] MEDS ORDERED: SODIUM CHLORIDE 0.9% 100 ML ONE (15:30)
[2023-07-06] MEDS ORDERED: KETOROLAC TROMETHAMINE 30 MG/ML VIAL IVP ONE (15:30)
[2023-07-06 15:51] LABS: COVID AG,FIA SOURCE NASAL SWAB
[2023-07-06 16:00] LABS: SARS-COV2 (COVID) ANTIGEN,FIA Negative (Negative)
[2023-07-06 16:01] LABS: INFLUENZA TYPE A NEGATIVE FOR TYPE A (NEGATIVE); INFLUENZA TYPE B NEGATIVE FOR TYPE B (NEGATIVE)
[2023-07-06 19:30] VITALS: BP 121/74; PULSE 76; RESP 16
[2023-07-06] MEDS ORDERED: HYDROCODONE/ACETAMINOPHEN 5-325 MG TABLET PO ONE (20:15)
[2023-07-06] MEDS ORDERED: TRAM-559 PO (20:18)
[2023-07-06] MEDS ORDERED: CEPH-558 PO (20:20)
== END 2023-07-06 20:30 | disposition home or self-care (01) ==
LOC: EMS 12:42
DX: M54.2 Cervicalgia (principal); R51.9 Headache, unspecified; F41.9 Anxiety disorder, unspecified; F32.A Depression, unspecified; I10 Essential (primary) hypertension; F20.9 Schizophrenia, unspecified; F17.210 Nicotine dependence, cigarettes, uncomplicated; F12.90 Cannabis use, unspecified, uncomplicated; Z98.890 Other specified postprocedural states; Z20.822 Contact with and (suspected) exposure to COVID-19
CPT/HCPCS: 99285; 70450; 96365; 96375; 87426; 80053; 85025; 87804; 70491; J1885; Q9967; J7030; J7050; J0131

== ENCOUNTER 2023-10-04 11:00 | Emergency (ER) | payer MEDICAID, OTHER ==
[~2023-10-04] VITALS: Ht 172.7 cm; Wt 84.1 kg
[~2023-10-04 11:00] MED LIST changes: -IBUP-1492 PO; -SULF-261 PO; +TRAM-559 PO
[2023-10-04 11:03] VITALS: TEMP 98
[2023-10-04 11:09] VITALS: BP 157/102; PULSE 88; RESP 18
== END 2023-10-04 11:44 | disposition home or self-care (01) ==
LOC: EMS 11:00
DX: F41.9 Anxiety disorder, unspecified (principal); F32.A Depression, unspecified; F20.9 Schizophrenia, unspecified; F17.210 Nicotine dependence, cigarettes, uncomplicated; F12.90 Cannabis use, unspecified, uncomplicated
CPT/HCPCS: 99281; Z7502

== ENCOUNTER 2023-12-15 06:50 | Emergency (ER) | payer MEDICAID ==
[~2023-12-15] VITALS: Ht 172.7 cm; Wt 81.0 kg
[~2023-12-15 06:50] MED LIST changes: -AMIT50TA3 PO; -CEPH-558 PO; -TRAM-559 PO
[2023-12-15 06:55] VITALS: TEMP 97.4
[2023-12-15 07:10] VITALS: BP 157/104; PULSE 84; RESP 16
[2023-12-15] MEDS ORDERED: BENZ2TAB71 PO (07:10)
[2023-12-15] MEDS: BENZTROPINE MESYLATE 1 MG/ML 2 ML VIAL IM ONE (07:17)
== END 2023-12-15 07:29 | disposition home or self-care (01) ==
LOC: EMS 06:54
DX: G25.9 Extrapyramidal and movement disorder, unspecified (principal); I10 Essential (primary) hypertension; F41.9 Anxiety disorder, unspecified; F20.9 Schizophrenia, unspecified; F32.A Depression, unspecified; F17.210 Nicotine dependence, cigarettes, uncomplicated; F12.90 Cannabis use, unspecified, uncomplicated
CPT/HCPCS: 99283; 96372; J0515

== ENCOUNTER 2023-12-23 12:01 | Emergency (ER) | payer MEDICAID ==
[~2023-12-23] VITALS: Ht 170.2 cm; Wt 86.4 kg
[~2023-12-23 12:01] MED LIST changes: +BENZ2TAB71 PO
[2023-12-23] MEDS ORDERED: ATOR20TA65 PO (12:35)
[2023-12-23] MEDS: CeFAZolin SODIUM 1 GM VIAL IM ONE (12:38)
[2023-12-23] MEDS: HYDROCODONE/ACETAMINOPHEN 5-325 MG TABLET PO ONE (12:38)
[2023-12-23] MEDS: SODIUM CHLORIDE 0.9% 250 ML IRRIG SOLUTION BOTTLE IRRIG ONE (12:38)
[2023-12-23] MEDS: PERTUSS(ACELL),DIPH,TET/PF 0.5 ML SYRINGE [ADULT] IM. ONE (12:40)
[2023-12-23 12:53] VITALS: BP 121/79; PULSE 98; RESP 18; TEMP 98
[2023-12-23] MEDS ORDERED: CEPH-558 PO (12:54)
[2023-12-23] MEDS: BACITRACIN 0.9 GM PACKET OINTMENT TP ONE (13:20)
== END 2023-12-23 13:23 | disposition home or self-care (01) ==
LOC: EMS 12:02
DX: S61.431A Puncture wound without foreign body of right hand, initial encounter (principal); I10 Essential (primary) hypertension; F41.9 Anxiety disorder, unspecified; F32.A Depression, unspecified; F20.9 Schizophrenia, unspecified; F17.210 Nicotine dependence, cigarettes, uncomplicated; F12.90 Cannabis use, unspecified, uncomplicated; X58.XXXA Exposure to other specified factors, initial encounter; Y93.89 Activity, other specified; Y92.89 Other specified places as the place of occurrence of the external cause; Y99.8 Other external cause status
CPT/HCPCS: 99284; 73130; 90715; 90471; 96372; J0690

== ENCOUNTER 2024-03-26 14:15 | Emergency (ER) | payer MEDICAID ==
[~2024-03-26] VITALS: Ht 172.7 cm; Wt 84.1 kg
[~2024-03-26 14:15] MED LIST changes: +ATOR20TA65 PO; -BENZ2TAB71 PO; +CEPH-558 PO
[2024-03-26] MEDS: SODIUM CHLORIDE 0.9% 250 ML IRRIG SOLUTION BOTTLE IRRIG ONE (15:16)
[2024-03-26] MEDS: LIDOCAINE 1% 10 ML VIAL ID ONE (15:16)
[2024-03-26] MEDS: PERTUSS(ACELL),DIPH,TET/PF 0.5 ML SYRINGE [ADULT] IM. ONE (15:18)
[2024-03-26] MEDS: HYDROCODONE/ACETAMINOPHEN 5-325 MG TABLET PO ONE (15:19)
[2024-03-26] MEDS: BACITRACIN 0.9 GM PACKET OINTMENT TP ONE (15:19)
[2024-03-26 16:10] VITALS: BP 97/67; PULSE 96; RESP 18; TEMP 98; O2SAT 99
[2024-03-26] MEDS ORDERED: CEPH-558 PO (16:11)
== END 2024-03-26 16:27 | disposition home or self-care (01) ==
LOC: EMS 14:15
DX: S61.213A Laceration without foreign body of left middle finger without damage to nail, initial encounter (principal); F41.9 Anxiety disorder, unspecified; F32.A Depression, unspecified; I10 Essential (primary) hypertension; F20.9 Schizophrenia, unspecified; F17.210 Nicotine dependence, cigarettes, uncomplicated; F12.90 Cannabis use, unspecified, uncomplicated; Z98.890 Other specified postprocedural states; W25.XXXA Contact with sharp glass, initial encounter; Y93.89 Activity, other specified; Y92.89 Other specified places as the place of occurrence of the external cause; Y99.8 Other external cause status
CPT/HCPCS: 99283; 90715; 90471; 29130; 12002; J3490

== ENCOUNTER 2024-06-10 02:47 | Emergency (ER) | payer MEDICAID ==
[~2024-06-10] VITALS: Ht 172.7 cm; Wt 81.8 kg
[2024-06-10 03:00] VITALS: BP 134/96; PULSE 95; RESP 16; TEMP 98.2; O2SAT 98
== END 2024-06-10 05:03 | disposition left against medical advice (07) ==
LOC: EMS 02:47
DX: R51.9 Headache, unspecified (principal); Z53.21 Procedure and treatment not carried out due to patient leaving prior to being seen by health care provider

== ENCOUNTER 2024-07-28 10:44 | Emergency (ER) | payer MEDICAID ==
[~2024-07-28] VITALS: Ht 170.2 cm; Wt 81.8 kg
[2024-07-28 10:50] VITALS: TEMP 98.2
[2024-07-28 11:30] VITALS: BP 153/97; PULSE 84; RESP 18; O2SAT 99
[2024-07-28] MEDS: PERMETHRIN 5% 60 GM CREAM TP ONE (12:16)
== END 2024-07-28 12:17 | disposition home or self-care (01) ==
LOC: EMS 10:46
DX: L29.9 Pruritus, unspecified (principal); B86 Scabies; I10 Essential (primary) hypertension; F12.90 Cannabis use, unspecified, uncomplicated; F20.9 Schizophrenia, unspecified; F17.210 Nicotine dependence, cigarettes, uncomplicated; Z79.899 Other long term (current) drug therapy
CPT/HCPCS: 99282; Z7502; Z7610

== ENCOUNTER 2024-08-02 08:48 | Emergency (ER) | payer MEDICAID ==
[~2024-08-02] VITALS: Ht 172.7 cm; Wt 86.4 kg
[2024-08-02 08:51] VITALS: BP 146/99; PULSE 70; RESP 18; TEMP 98.5; O2SAT 97
== END 2024-08-02 10:15 | disposition left against medical advice (07) ==
LOC: EMS 08:49
DX: M25.511 Pain in right shoulder (principal); Z53.21 Procedure and treatment not carried out due to patient leaving prior to being seen by health care provider

== ENCOUNTER → 2024-09-01 | Emergency (ER) | payer MEDICAID ==
[~2024-09-01] MED LIST changes: -ATOR20TA65 PO; -CEPH-558 PO
== END | disposition left against medical advice (07) ==
LOC: EMS 23:17
DX: F98.9 Unspecified behavioral and emotional disorders with onset usually occurring in childhood and adolescence (principal); Z53.21 Procedure and treatment not carried out due to patient leaving prior to being seen by health care provider

== ENCOUNTER 2024-09-02 01:29 | Emergency (ER) | payer MEDICAID ==
[~2024-09-02] VITALS: Ht 172.7 cm; Wt 81.8 kg
[2024-09-02 01:37] VITALS: TEMP 97.6
[2024-09-02 02:52] LABS: BASOPHILS % (AUTO) 0.7 % (0.0-2.0); EOSINOPHILS % (AUTO) 0.7 % (1.0-6.0); HEMATOCRIT 47.9 % (41-53); HEMOGLOBIN 15.9 g/dL (13.5-17.5); MEAN CORPUSCULAR HEMOGLOBIN 30.6 pg (26.0-34.0); MEAN CORPUSCULAR HGB CONC 33.2 G/dL (31.0-37.0); MEAN CORPUSCULAR VOLUME 92 fL (80-100); MONOCYTES # (AUTO) 0.9 K/uL (0.1-1.0); MONOCYTES % (AUTO) 9.6 % (2.0-9.0); NEUTROPHILS # (AUTO) 5.3 K/uL (1.8-7.7); PLATELET COUNT (AUTO) 250 K/uL (150-450); RED CELL DISTRIBUTION WIDTH 13.9 % (11.5-14.5); WHITE BLOOD COUNT (AUTO) 9.2 K/uL (4.5-11.0)
[2024-09-02 03:02] LABS: ANION GAP 9 mmol/L (8-16); CALCIUM, TOTAL 9.3 mg/dL (8.8-10.5); CARBON DIOXIDE 29 mmol/L (22-29); CHLORIDE 102 mmol/L (98-107); CREATININE 1.16 mg/dL (0.60-1.30); GLOMERULAR FILTR. RATE CALC > 60 mL/min (>60); GLUCOSE,RANDOM 94 mg/dL (70-110); POTASSIUM 4.2 mmol/L (3.5-5.1); SODIUM SERUM 140 mmol/L (136-145); UREA NITROGEN, BLOOD 21 mg/dL (7-18)
[2024-09-02] MEDS: OLANZapine 5 MG TABLET PO ONE (03:03)
[2024-09-02] MEDS: DiphenhydrAMINE HCL 25 MG CAPSULE PO ONE (03:03)
[2024-09-02 03:13] LABS: ALCOHOL, BLOOD (SERUM) < 3 mg/dL (0-10)
[2024-09-02 05:27] VITALS: BP 125/86; PULSE 95; RESP 16; O2SAT 98
[2024-09-02 05:46] LABS: COVID AG,FIA SOURCE NASAL SWAB
[2024-09-02 07:06] LABS: SARS-COV2 (COVID) ANTIGEN,FIA Negative (Negative)
== END 2024-09-02 06:09 | disposition left against medical advice (07) ==
LOC: EMS 01:31
DX: F25.1 Schizoaffective disorder, depressive type (principal); F12.90 Cannabis use, unspecified, uncomplicated; F41.9 Anxiety disorder, unspecified; I10 Essential (primary) hypertension; F17.210 Nicotine dependence, cigarettes, uncomplicated; Z79.899 Other long term (current) drug therapy; Z20.822 Contact with and (suspected) exposure to COVID-19
CPT/HCPCS: 99284; 87426; 80048; 85025; 36415; G0480

== ENCOUNTER 2024-09-13 02:12 | Emergency (ER) | payer MEDICAID ==
[~2024-09-13] VITALS: Ht 157.5 cm; Wt 81.8 kg
[2024-09-13 02:23] VITALS: BP 103/61; PULSE 83; RESP 20; TEMP 97.6; O2SAT 94
[2024-09-13] MEDS ORDERED: PERM60CR4 TP (04:12)
== END 2024-09-13 05:12 | disposition home or self-care (01) ==
LOC: EMS 02:12
DX: B86 Scabies (principal); Z20.7 Contact with and (suspected) exposure to pediculosis, acariasis and other infestations; I10 Essential (primary) hypertension; F12.90 Cannabis use, unspecified, uncomplicated; F17.210 Nicotine dependence, cigarettes, uncomplicated; F20.9 Schizophrenia, unspecified; Z79.899 Other long term (current) drug therapy
CPT/HCPCS: 99282; Z7502

== ENCOUNTER 2024-11-21 11:17 | Emergency (ER) | payer MEDICAID ==
[~2024-11-21] VITALS: Ht 172.7 cm; Wt 86.4 kg
[~2024-11-21 11:17] MED LIST changes: +PERM60CR4 TP
[2024-11-21 11:27] VITALS: BP 115/73; PULSE 94; RESP 18; TEMP 98.2; O2SAT 97
[2024-11-21 12:11] LABS: BASOPHILS % (AUTO) 0.9 % (0.0-2.0); HEMATOCRIT 43.1 % (41-53); HEMOGLOBIN 14.2 g/dL (13.5-17.5); LYMPHOCYTES # (AUTO) 1.8 K/uL (1.0-4.8); LYMPHOCYTES % (AUTO) 38.9 % (22.0-44.0); MEAN CORPUSCULAR HEMOGLOBIN 29.9 pg (26.0-34.0); MEAN CORPUSCULAR HGB CONC 32.9 G/dL (31.0-37.0); MEAN CORPUSCULAR VOLUME 91 fL (80-100); MONOCYTES # (AUTO) 0.5 K/uL (0.1-1.0); NEUTROPHILS # (AUTO) 2.2 K/uL (1.8-7.7); NEUTROPHILS % (AUTO) 48.2 % (40.0-70.0); PLATELET COUNT (AUTO) 214 K/uL (150-450); RED BLOOD CELL COUNT(AUTO) 4.75 MIL/uL (4.50-5.90); RED CELL DISTRIBUTION WIDTH 14.3 % (11.5-14.5); WHITE BLOOD COUNT (AUTO) 4.7 K/uL (4.5-11.0)
[2024-11-21 12:20] LABS: ANION GAP 7 mmol/L (8-16); CALCIUM, TOTAL 8.7 mg/dL (8.8-10.5); CARBON DIOXIDE 30 mmol/L (22-29); CHLORIDE 107 mmol/L (98-107); CREATININE 1.09 mg/dL (0.60-1.30); GLOMERULAR FILTR. RATE CALC > 60 mL/min (>60); GLUCOSE,RANDOM 102 mg/dL (70-110); POTASSIUM 4.5 mmol/L (3.5-5.1); SODIUM SERUM 144 mmol/L (136-145); UREA NITROGEN, BLOOD 14 mg/dL (7-18)
[2024-11-21 12:28] LABS: TROPONIN I-HIGH SENSITIVITY 4 ng/L (<76)
== END 2024-11-21 12:15 | disposition left against medical advice (07) ==
LOC: EMS 11:30
DX: R20.2 Paresthesia of skin (principal); I10 Essential (primary) hypertension; F12.90 Cannabis use, unspecified, uncomplicated; F20.9 Schizophrenia, unspecified; F17.210 Nicotine dependence, cigarettes, uncomplicated
CPT/HCPCS: 80048; 84484; 85025; 93005; 99283

== ENCOUNTER 2024-12-16 12:51 | Emergency (ER) | payer MEDICAID ==
[~2024-12-16] VITALS: Ht 172.7 cm; Wt 86.4 kg
[2024-12-16 13:00] VITALS: TEMP 98.1
[2024-12-16 15:00] VITALS: BP 136/87; PULSE 97; RESP 17; O2SAT 98
[2024-12-16] MEDS ORDERED: AMOX-457 PO (15:36)
[2024-12-16] MEDS ORDERED: IBUP-1506 PO (15:36)
[2024-12-16] MEDS: IBUPROFEN 400 MG TABLET PO ONE (15:43)
[2024-12-16] MEDS: AMOX TR/POT CLAV 875 MG/125 MG TABLET PO ONE (15:43)
== END 2024-12-16 15:49 | disposition home or self-care (01) ==
LOC: EMS 12:51
DX: J34.0 Abscess, furuncle and carbuncle of nose (principal); F20.9 Schizophrenia, unspecified; I10 Essential (primary) hypertension; F41.9 Anxiety disorder, unspecified; F32.9 Major depressive disorder, single episode, unspecified; F12.90 Cannabis use, unspecified, uncomplicated; F17.210 Nicotine dependence, cigarettes, uncomplicated; Z98.890 Other specified postprocedural states
CPT/HCPCS: 99283

== ENCOUNTER 2025-03-06 10:38 | Emergency (ER) | payer MEDICAID ==
[~2025-03-06] VITALS: Ht 172.7 cm; Wt 81.8 kg
[~2025-03-06 10:38] MED LIST changes: +AMOX-457 PO; +IBUP-1506 PO; -LISI20TA24 PO; -PERM60CR4 TP
[2025-03-06 11:00] VITALS: BP 132/85; PULSE 113; RESP 16; TEMP 98.1; O2SAT 99
[2025-03-07] MEDS ORDERED: IBUP-1492 PO (09:02)
[2025-03-07] MEDS ORDERED: METH-659 PO (09:02)
== END 2025-03-06 12:08 | disposition left against medical advice (07) ==
LOC: EMS 10:43
DX: R21 Rash and other nonspecific skin eruption (principal); B86 Scabies; F20.9 Schizophrenia, unspecified; I10 Essential (primary) hypertension; F12.90 Cannabis use, unspecified, uncomplicated; F17.210 Nicotine dependence, cigarettes, uncomplicated; Z79.899 Other long term (current) drug therapy; Z98.890 Other specified postprocedural states
CPT/HCPCS: 99282; Z7502

== ENCOUNTER 2025-03-07 06:09 | Emergency (ER) | payer MEDICAID ==
[~2025-03-07] VITALS: Ht 172.7 cm; Wt 79.5 kg
[2025-03-07 06:24] VITALS: TEMP 97.5
[2025-03-07] MEDS: KETOROLAC TROMETHAMINE 60 MG/2 ML VIAL IM ONE (07:25)
[2025-03-07] MEDS: MECLIZINE HCL 25 MG TABLET PO ONE (08:36)
[2025-03-07] MEDS ORDERED: IBUP-1492 PO (09:02)
[2025-03-07] MEDS ORDERED: METH-659 PO (09:02)
[2025-03-07 09:11] VITALS: BP 111/72; PULSE 76; RESP 16; O2SAT 96
== END 2025-03-07 09:15 | disposition home or self-care (01) ==
LOC: EMS 06:57
DX: S16.1XXA Strain of muscle, fascia and tendon at neck level, initial encounter (principal); F20.9 Schizophrenia, unspecified; I10 Essential (primary) hypertension; F41.9 Anxiety disorder, unspecified; F32.A Depression, unspecified; F17.210 Nicotine dependence, cigarettes, uncomplicated; R42 Dizziness and giddiness; Z79.899 Other long term (current) drug therapy; Z98.890 Other specified postprocedural states; X50.9XXA Other and unspecified overexertion or strenuous movements or postures, initial encounter; Y93.89 Activity, other specified; Y92.89 Other specified places as the place of occurrence of the external cause; Y99.8 Other external cause status
CPT/HCPCS: 99283; 96372; J1885

== ENCOUNTER 2025-03-08 04:20 | Emergency (ER) | payer MEDICAID ==
[~2025-03-08] VITALS: Ht 172.7 cm; Wt 90.9 kg
[~2025-03-08 04:20] MED LIST changes: +IBUP-1492 PO; +METH-659 PO
[2025-03-08 04:30] VITALS: BP 123/87; PULSE 91; RESP 14; TEMP 97.9; O2SAT 98
[2025-03-08 05:14] LABS: PLATELET COUNT (AUTO) 276 K/uL (150-450); RED BLOOD CELL COUNT(AUTO) 4.54 MIL/uL (4.50-5.90); RED CELL DISTRIBUTION WIDTH 14.4 % (11.5-14.5); WHITE BLOOD COUNT (AUTO) 9.2 K/uL (4.5-11.0)
[2025-03-08 05:21] LABS: CALCIUM, TOTAL 8.2 mg/dL (8.8-10.5); CREATININE 1.72 mg/dL (0.60-1.30); GLOMERULAR FILTR. RATE CALC 41.0 mL/min (>60); GLUCOSE,RANDOM 99.0 mg/dL (70-110); SODIUM SERUM 134.0 mmol/L (136-145); UREA NITROGEN, BLOOD 36.0 mg/dL (7-18)
== END 2025-03-08 05:43 | disposition home or self-care (01) ==
LOC: EMS 04:21
DX: F32.A Depression, unspecified (principal); I10 Essential (primary) hypertension; F20.9 Schizophrenia, unspecified; F41.9 Anxiety disorder, unspecified; F17.210 Nicotine dependence, cigarettes, uncomplicated; Z79.1 Long term (current) use of non-steroidal anti-inflammatories (NSAID)
CPT/HCPCS: 99283; 80048; 85025; 36415; G0480